=== PATIENT | female | born 1995 | race Two or more races ===

== ENCOUNTER → 2018-05-20 16:30 | Outpatient (CLI) | payer BC, SELFPAY ==
[2018-05-14 12:09] VITALS: BMI 21.6
[2018-05-20 17:47] LABS: Glucose Challenge Gest 1H 50g 68 mg/dL (70-140)
--- OUTSIDE RECORDS SUMMARY | 2018-07-16 09:11 | XMS RPT_ITS ---
:1995 Author Organization OHIP Care Team Providers Name Role Phone Mabel Villafana Attending Unavailable Gulshankarus, Miryamour Referring Unavailable Primay Care Physicia, No Primary Care Unavailable Ledy, Miryamour Attending Unavailable Rahel Dasily Primary Care Unavailable Isckarus, Mansour Consulting Unavailable Pieters, Isis Referring Unavailable Isckarus, Miryamour Attending Unavailable Primay Care Physicia, No Primary Care Unavailable Isckarus, Mansour Consulting Unavailable Pieters, Isis Referring Unavailable Pieters, Isis Attending Unavailable Primay Care Physicia, No Primary Care Unavailable PROBLEMS PROBLEMS DATE TYPE CONDITION / CODE ATTENDING STATUS SOURCE 05/20/2018 Unknown Z34.82 - Isis Das Active [place] Encounter for Community supervision of Hospital other normal Repository , second trimester / Z34.82(ICD-10) 05/19/2018 Unknown D50.9 - Iron Isckarus, Active Antonio deficiency Mansisaac [facility] anemia, [facility] unspecified / Repository D50.9(ICD-10) PROCEDURES PROCEDURES No Procedure Records FoundRESULTS RESULTS GLUCOSE CHALLENGE GEST Collected: 05/20/2018 Status: F Source: ANTONIO 1H 50G 4:50 PM [facility] REPOSITORY TYPE CODE TESTS RESULT OUT OF RANGE REFERENCE UNITS LAB L501.0250 70-140 mg/dL Low GLU GEST 68 50g 1H Performed By: #### L501.0250 #### [facility] [address] [place], [address] ONCOLOGY VISIT REPORT Observed: 05/14/2018 Status: F Source: MAGNOLIA 12:42 PM [facility] REPOSITORY [facility] [address] [place] [address] OFFICE VISIT Date of Service: 05/14/18 1238 MR#: [id number] Acct: [id number] Name: SHAQ MEDRANO Rep #: [id number] : 1995 From: Mabel Villafana MD Age/Sex: 22/F Location: OMD Status: Signed - Problem List (1) Iron deficiency anemia Status: Chronic (2) Microcytic anemia Status: Resolved Comment: With iron supplementation - Date of Service Date of Service:: 05/14/18 - Chief Complaint Anemia - History of Present Illness Patient is a 22-year-old female of [place] heritage, in midtrimester referred because of microcytic anemia. She reports being anemic with a hemoglobin around 9 g per DL even prior to her . In the first trimester of her she was seen by ([facility]) was diagnosed with iron deficiency and advised to start taking oral iron which she has been taking since currently 3 tablets daily with the main side effect reported being constipation. Additionally she is taking her vitamin which she believes include some iron too. She is unaware of any external blood loss, and although she reports that prior to becoming her periods were not particularly heavy she reports menses that last on average 5 days, changing tampons on average twice daily, the blood flow included blood clots. - Past Medical/Social History Social History Social History: No changes Smoking Status Never smoker Review of Systems Comment: I feel better. For a full review of systems please see my recent consult of May 07, 2018 Vital Signs Height 5 ft 6 in Weight: 60.691 kg Weight in Pounds 133.8 lbs Pulse Ox 100 - Physical Exam General: Alert, Oriented x3, No apparent distress, - - For a full exam please see my recent note of May 07, 2018 Laboratory Data: Reviewed in EMR Assessment and Plan 22-year-old female in mid trimester non-complicated who presented with a chronic microcytic. With iron supplementation microcytosis resolved and therefore her anemia is most consistent with: #1 iron deficiency anemia probably related to prior menstrual losses. #2 anemia (due to hemodilution). Thalassemia trait is very unlikely. Recommendation: Continue oral iron supplement 1 tablet daily (has been increasingly constipated on 3 times daily) and will reevaluate in 2 months. Patient was seen was her impression and plan discussed Medications: Prescriptions This Visit Medication Instructions Recorded Ferous Sulfate 1 tab PO TID 05/07/18 Pnv95/Ferrous Fumarate/FA 2 each PO DAILY 05/07/18 [ Vitamin Tablet] Primary Care Provider: Isis Dsa Referring Provider: 05/14/18 1242 <Electronically signed by Mabel Villafana MD> Date Mabel Villafana MD Cosigner Signature: Date (if applicable) CC: CBC W/DIFF, AUTOMATED Collected: 05/07/2018 Status: F Source: ANTONIO 4:39 PM [facility] REPOSITORY Order Comment: Reason for Laboratory Test . TYPE CODE TESTS RESULT OUT OF RANGE REFERENCE UNITS LAB L100.1000 4.4-11.0 K/mm3 Normal WBC 9.5 LAB L100.1200 4.2-5.4 M/mm3 Normal RBC 4.56 LAB L100.1300 12.0-15.0 g/dl Normal HGB 12.5 LAB L100.1400 37-47 % Normal HCT 38.3 LAB L100.1500 81-99 fL Normal MCV 84.0 LAB L100.1600 27.0-32.0 pg Normal MCH 27.4 LAB L100.1700 32-36 g/gl Normal MCHC 32.6 LAB L100.1810 11.6-14.6 % High RDW CV 19.6 LAB L100.1820 35.1-43.9 fl High RDW SD 58.7 LAB L100.1900 150-450 K/mm3 Normal PLT 270 LAB L100.2000 6.2-12.0 fl Normal MPV 8.4 LAB L100.2100 47-70 % Normal NEUT% 68.2 LAB L100.2200 19-41 % Normal LY% 21.5 LAB L100.2300 0-10 % Normal MONO% 7.2 LAB L100.2400 0-5 % Normal EO% 2.4 LAB L100.2500 0-1 % Normal BASO% 0.2 LAB L100.2550 0.0-0.9 % Normal IM GRAN % 0.500 Result Comment: IG% - Immature Granulocytes (promyelocytes, myelocytes and metamyelocytes) > 1% indicates that a LEFT SHIFT is Present. LAB L100.2620 2.0-7.7 X10 3/uL Normal Absolute Neut 6.5 LAB L100.2720 0.83-4.51 X10 3/ul Normal Absolute Lymph 2.04 Performed By: #### L100.0100, L100.9950 #### [facility] [address] [facility] [address] RETIC PANEL Collected: 05/07/2018 Status: F Source: MAGNOLIA 4:39 PM [facility] REPOSITORY Order Comment: Reason for Laboratory Test . TYPE CODE TESTS RESULT OUT OF RANGE REFERENCE UNITS LAB L101.0000 0.5-1.5 % 1.18 Normal RETIC LAB L101.0060 3.00-15.90 % IM 10.00 Normal RET FRACTION LAB L101.0090 30-35 pg 35.0 Normal RET-HE LAB L101.0110 1.0-7.9 % Test Normal IPF not performed Performed By: #### L100.0100, L100.9950 #### [facility] [address] [facility] [place], [place], [address] IRON+IRON BINDING Collected: 05/07/2018 Status: F Source: [facility] 4:39 PM [facility] REPOSITORY Order Comment: Reason for Laboratory Test . TYPE CODE TESTS RESULT OUT OF RANGE REFERENCE UNITS LAB L503.6075 250-450 ug/dL TIBC Normal 411 LAB L503.6150 50-170 ug/dL IRON Normal 72 LAB L503.6250 15.0-55.0 % IRON Normal SATURATION 17.5 Performed By: #### L503.6030, L503.6550 #### [facility] [address] [place], [address] FERRITIN Collected: 05/07/2018 Status: F Source: MAGNOLIA 4:39 PM [facility] REPOSITORY Order Comment: Reason for Laboratory Test . TYPE CODE TESTS RESULT OUT OF RANGE REFERENCE UNITS LAB L503.6550 8-252 ng/mL Normal FERRITIN 19 Performed By: #### L503.6030, L503.6550 #### [facility] [address] [facility] [place], [address] ONCOLOGY HISTORY AND Observed: 05/07/2018 Status: F Source: MAGNOLIA PHYSICAL 4:26 PM [facility] REPOSITORY [facility] Medical Records Department [address] [place] [address] History and Physical 05/07/18 1554 MR#: [id number] Acct: [id number] Name: SHAQ MEDRANO Rep #: [id number] : 1995 22 From: Mabel Villafana MD PCP: Isis Das MD Status: REG RCR Y Location: OMD - Problem List (1) Iron deficiency anemia Status: Chronic (2) Microcytic anemia Status: Chronic Subjective Date of Service:: 05/07/18 Chief Complaint: Anemia History of Present Illness: Patient is a 22-year-old female of [place] heritage, in midtrimester referred because of microcytic anemia. She reports being anemic with a hemoglobin around 9 g per DL even prior to her . In the first trimester of her she was seen by ([facility]) was diagnosed with iron deficiency and advised to start taking oral iron which she has been taking since currently 3 tablets daily with the main side effect reported being constipation. Additionally she is taking her vitamin which she believes include some iron too. She is unaware of any external blood loss, and although she reports that prior to becoming her periods were not particularly heavy she reports menses that last on average 5 days, changing tampons on average twice daily, the blood flow included blood clots. Health History: Past Medical History (Last Reviewed 05/07/18 @ 15:48 by Adriane Vela) Anemia (Acute) (Acute) Past Surgical History (Last Reviewed 05/07/18 @ 15:48 by Adriane Vela) No history of previous surgery (Acute) Allergies/Adverse Reactions: Allergy/AdvReac Type Severity Reaction Status Date / Time No Known Allergies Allergy Verified 05/07/18 15:48 Risk Factors Tobacco Risk Data: Tobacco Risk Smoking Status Type of tobacco: Smokeless tobacco usage: Items/Day: Year started: Years used: Counseled to quit/cut down: Reason for no counseling performed: Reason for no pharmacotherapy: Tobacco use comments: Passive smoke exposure: Substance Risk Drug use: Caffeine use [drinks/day]: Alcohol use: Type of alcohol: Drinks per day: Has patient felt the need to cut down: Has the patient been annoyed by complaints: Has the patient felt guilty about drinking: Has the patient needed an eye environmental services tech in the mornings: Comments: Review of Systems Constitutional:: Reports: - - She is able to do ADL without any restrictions. Denies: Fever, Sweats, Weight loss, Appetite change, Chills Cardiovascular:: Denies: Chest pain, Palpitations, Dyspnea on exertion, Orthopnea, PND, Shortness of breath Respiratory: Denies: Cough, Hemoptysis, Shortness of Breath, Wheezing Gastrointestinal:: Reports: Constipation. Denies: Abdominal pain, Nausea, Vomiting, Diarrhea, Hematochezia Genitourinary: Reports: - - 25 weeks. Denies: Dysuria, Hematuria, Flank pain Musculoskeletal:: Denies: Back pain, Myalgia, Arthralgia Skin: Denies: Rash, Skin Changes, Wounds Neurological:: Denies: Headache, Dizziness, Visual changes, Tinnitus, Hearing loss Psychiatric: Denies: Anxiety, Depression, Homicidal Ideations, Suicidal Ideations - Physical Exam General: Alert, Oriented x3, No apparent distress, - HEENT: Atraumatic, PERRLA, EOMI, Normocephalic Oropharynx:: Dry mucosa, - - Mild pallor Neck:: Supple, Trachea midline. Negative for: JVD, bilateral Cardiac:: Regular rate, Regular rhythm, Normal S1, Normal S2. Negative for: Murmur Lungs: Clear to auscultation, Excusion symmetrical. Negative for: Rhonchi, Wheezes Abdomen:: Soft, Non-tender. Negative for: Hepatosplenomegaly Extremities:: Negative for: Cyanosis, Edema Neurological: Neuro grossly intact Skin:: Negative for: Lesions, Rash, Petechiae, Ecchymosis Psychiatric:: Appropriate affect, Euthymic Lymphatics:: Negative for: Cervical lymphadenopathy, Supraclavicular lymphadenopathy Laboratory Data: February 12, 2018 outside lab show a hemoglobin of 9 g per DL, hematocrit 28.7, MCV 63, RDW 23.8%, white blood count and platelet counts are normal, ferritin 10, normal level for B12. Assessment and Plan 22-year-old female in mid trimester non-complicated with a chronic microcytic anemia most likely multifactorial including: #1 iron deficiency anemia probably related to prior menstrual losses. #2 Thalassemia trait. #3 anemia (due to hemodilution) Recommendation: 1. Update iron and CBC profile. 2. Continue oral iron supplement until seen in follow-up in 1 week. 3. Hemoglobin electrophoresis after correction of iron deficiency. Patient was seen was her impression and plan discussed Medications: Prescriptions This Visit Medication Instructions Recorded Ferous Sulfate 1 tab PO TID 05/07/18 Pnv95/Ferrous Fumarate/FA 2 each PO DAILY 05/07/18 [ Vitamin Tablet] Primary Care Provider: Isis Das Referring Provider: 05/07/18 2533 <Electronically signed by Mabel Villafana MD> Date Mabel Villafana MD Cosigner Signature: Date (if applicable) CC: Isis Das MD; Mabel Villafana MD Signed ALLERGIES ALLERGIES DATE TYPE / CODE NAME / CODE REACTION SEVERITY SOURCE 05/07/2018 Drug No Known Unknown [facility] Allergy/4160 Allergies/F00 [facility] [address](SNOMED [id number](RXNOR Repository CT) M) ENCOUNTERS ENCOUNTERS ADMIT/DISCHARGE ACCOUNT ADMITTING ENCOUNTER LOCATION SOURCE NUMBER CLASS 05/20/2018 [id number] Ambulatory [place] 3 [facility] ing:WOBLAB Repository 05/14/2018 [id number] Ambulatory BMSBuilding:B [place] 6 [facility] Repository 05/14/2018 [id number] Ambulatory [place] 7 [facility] ing:OMD Repository 05/07/2018 [id number] Ambulatory BMSBuilding:B [place] 2 [facility] Repository PAYERS PAYERS ENCOUNTER GUARANTOR PAYER SUBSCRIBER SOURCE 05/20/2018 [facility] Primary SUBRAMIAN [place] [id number] Insurance:ANTHEMPolic ANNAMALAIUNK [facility] RDUNIT y Number: [id number] Repository [address]Cpn: [phone] lisa Date:[id number] [phone] () [address] [place] [address]YF: 05/20/2018 Secondary NOT GIVENUNK [place] Insurance:SELF PAY [facility] Number: Effective Repository Date:2018-05-20 05/14/2018 [facility] Primary SUBRAMIAN [place] [id number] Insurance:ANTHEMPolic ANNAMALAIUNK [facility] RDUNIT y Number: [address] [id number] Repository [address]Dgf: [phone] lisa Date:[id number] [phone] () [id number] [place] [address]BU: 05/14/2018 Secondary NOT GIVENUNK Antonio Insurance:SELF PAY [facility] Number: Effective Repository Date:2018-05-14 05/14/2018 [facility] Primary SUBRAMIAN Antonio [id number] Insurance:ANTHEMPolic ANNAMALAIUNK [facility] RDUNIT y Number: [address] [id number] Repository [address]Fpt: [phone] lisa Date:[id number] [phone] () [address], [place] [address]YS: 05/14/2018 Secondary NOT GIVENUNK [place] Insurance:SELF PAY [facility]: Effective Repository Date:2018-05-05 05/07/2018 [facility] Primary SUBRAMIAN [place] [id number] [facility] Number: [address] [id number] Repository [address]Lax: [phone] lisa Date:1714-72-26RM [phone] () [address], [place] [address]RM: 05/07/2018 Secondary NOT GIVENUNK [place] Insurance:SELF PAY [facility] Number: Effective Repository Date:2018-05-07
== END ==
PROVIDERS: Visit Provider Obstetrics & Gynecology
DX: Z34.82 Encounter for supervision of other normal pregnancy, second trimester (principal)
CPT/HCPCS: 36415; 82950

== ENCOUNTER → 2018-07-12 11:12 | Outpatient (CLI) | payer BC, SELFPAY ==
[2018-05-14 12:09] VITALS: BMI 21.6
[2018-07-12 11:28] LABS: Absolute Lymphocyte Count 1.51 X10^3/ul (0.83-4.51); Absolute Neutrophil Count 7.8 X10^3/uL (2.0-7.7); Basophil# 0.02 X10^3/uL; Basophil% 0.2 % (0-1); Eosinophil# 0.32 X10^3/uL; Eosinophils% 3.1 % (0-5); Hematocrit 37.6 % (37-47); Hemoglobin 12.4 g/dl (12.0-15.0); Lymphocyte # 1.51 X10^3/ul (4.0); Lymphocyte % 14.5 % (19-41); Mean Corpuscular Hgb 29.3 pg (27.0-32.0); Mean Corpuscular Volume 88.9 fL (81-99); Mean Platelet Vol. 8.3 fl (6.2-12.0); Monocyte# 0.76 X10^3/uL; Monocyte% 7.3 % (0-10); Neutrophil # 7.75 X10^3/uL (2.7-7.7); Neutrophil % 74.2 % (47-70); Platelet Count 252 K/mm3 (150-450); RBC Distribution Width CV 14.1 % (11.6-14.6); RBC Distribution Width SD 44.9 fl (35.1-43.9); Red Blood Count 4.23 M/mm3 (4.2-5.4); White Blood Count 10.4 K/mm3 (4.4-11.0)
[2018-07-12 11:29] LABS: POSITIVE COUNT NO; POSITIVE DIFFERENTIAL NO; POSITIVE MORPHOLOGY NO
[2018-07-12 12:16] LABS: Ferritin 31 ng/mL (8-252); Iron 87 ug/dL (50-170); Iron Binding Capacity,Total 426 ug/dL (250-450); PERCENT IRON SATURATION 20.4 % (15.0-55.0)
--- OUTSIDE RECORDS SUMMARY | 2018-09-15 10:07 | XMS RPT_ITS ---
:1995 Author Organization OHIP Care Team Providers Name Role Phone STEW DAMON CNP Attending Unavailable HUDSON FOWLER, DR. ANTONY Pena Attending Unavailable STEW DAMON CNP Referring Unavailable PHYSICIAN, NONE Primary Care Unavailable HUDSON FOWLER, DR. ANTONY Pena Attending Unavailable PHYSICIAN, NONE Primary Care Unavailable Isckarus, Mansour Attending Unavailable Isckarus, Mansour Referring Unavailable Primay Care Physicia, No Primary Care Unavailable Isckarus, Mansour Attending Unavailable Primay Care Physicia, No Primary Care Unavailable Isckarus, Mansour Consulting Unavailable Benekos, Isis Referring Unavailable Isckarus, Mansour Attending Unavailable Isckarus, Mansour Referring Unavailable Primay Care Physicia, No Primary Care Unavailable Isckarus, Mansour Attending Unavailable Benekos, Isis Primary Care Unavailable Isckarus, Mansour Consulting Unavailable Benekos, Isis Referring Unavailable Isckarus, Mansour Attending Unavailable Primay Care Physicia, No Primary Care Unavailable Isckarus, Mansour Consulting Unavailable Benekos, Isis Referring Unavailable Benekos, Isis Attending Unavailable Primay Care Physicia, No Primary Care Unavailable PROBLEMS PROBLEMS DATE TYPE CONDITION / CODE ATTENDING STATUS SOURCE 07/11/2018 Unknown D50.9 - Iron Isckarus, Active [place] deficiency [facility] anemia, [facility] unspecified / Repository D50.9(ICD-10) 05/20/2018 Unknown Z34.82 - Rahel Dasily Active [place] Encounter for [facility] other normal Repository , second trimester / Z34.82(ICD-10) 01/23/2018 Admitting Encounter for STEW DAMON CNP Active [facility] screening, Repository unspecified / Z36.9(ICD-10) PROCEDURES PROCEDURES No Procedure Records FoundRESULTS RESULTS ONCOLOGY VISIT REPORT Observed: 07/15/2018 Status: F Source: [place] 3:47 PM [facility] HOSPITAL REPOSITORY [facility] [place] [facility] [address] [place] [address] OFFICE VISIT Date of Service: 07/15/18 1531 MR#: [id number] Acct: [id number] Name: MARCELASHAQ Rep #: [id number] : 1995 From: Mabel Villafana MD Age/Sex: 22/F Location: OMD Status: Signed - Problem List (1) Iron deficiency anemia Status: Chronic - Date of Service Date of Service:: 07/15/18 - Chief Complaint Anemia - History of Present Illness Patient is a 22-year-old female of [place] heritage, referred During her first because of microcytic anemia. She reports being anemic with a hemoglobin around 9 g per DL even prior to her . In the first trimester of her she was seen by ([facility]) was diagnosed with iron deficiency and advised to start taking oral iron She is unaware of any external blood loss, and although she reports that prior to becoming her periods were not particularly heavy she reports menses that last on average 5 days, changing tampons on average twice daily, the blood flow included blood clots. - Past Medical/Social History Social History Social History: No changes Smoking Status Never smoker Review of Systems Constitutional:: Denies: Fever, Sweats, Weight loss, Appetite change, Chills Cardiovascular:: Denies: Chest pain, Palpitations, Dyspnea on exertion, Orthopnea, PND, Shortness of breath Respiratory: Denies: Cough, Hemoptysis, Shortness of Breath, Wheezing Comment: No complications during as and expecting in July 2018 Vital Signs Height 5 ft 6 in Weight: 60.691 kg Weight in Pounds 133.8 lbs Pulse Ox 100 - Physical Exam General: Alert, Oriented x3, No apparent distress, - - No pallor Assessment and Plan 22-year-old female in Third trimester non-complicated who presented In early with a chronic microcytic. With iron supplementation microcytosis resolved and therefore her anemia is most consistent with: #1 iron deficiency anemia probably related to prior menstrual losses. Resolved with oral iron supplement. #2 anemia (due to hemodilution). Recommendation: Continue oral iron supplement 1 tablet daily Advised until menopause . Patient was seen was her impression and plan discussed. Followup annual Medications: Prescriptions This Visit Medication Instructions Recorded Ferous Sulfate 1 tab PO TID 05/07/18 Pnv No.95/Ferrous Fum/Folic AC 2 each PO DAILY 05/07/18 [ Vitamin Tablet] Primary Care Provider: Isis Das Referring Provider: 07/15/18 2665 <Electronically signed by Mabel Villafana MD> Date Mabel Villafana MD Cosigner Signature: Date (if applicable) CC: Isis Das MD CBC W/DIFF, AUTOMATED Collected: 07/12/2018 Status: F Source: [place] 11:16 AM [facility] REPOSITORY Order Comment: Reason for Laboratory Test . TYPE CODE TESTS RESULT OUT OF RANGE REFERENCE UNITS LAB L100.1000 4.4-11.0 K/mm3 Normal WBC 10.4 LAB L100.1200 4.2-5.4 M/mm3 Normal RBC 4.23 LAB L100.1300 12.0-15.0 g/dl Normal HGB 12.4 LAB L100.1400 37-47 % Normal HCT 37.6 LAB L100.1500 81-99 fL Normal MCV 88.9 LAB L100.1600 27.0-32.0 pg Normal MCH 29.3 LAB L100.1700 32-36 g/gl Normal MCHC 33.0 LAB L100.1810 11.6-14.6 % Normal RDW CV 14.1 LAB L100.1820 35.1-43.9 fl High RDW SD 44.9 LAB L100.1900 150-450 K/mm3 Normal PLT 252 LAB L100.2000 6.2-12.0 fl Normal MPV 8.3 LAB L100.2100 47-70 % High NEUT% 74.2 LAB L100.2200 19-41 % Low LY% 14.5 LAB L100.2300 0-10 % Normal MONO% 7.3 LAB L100.2400 0-5 % Normal EO% 3.1 LAB L100.2500 0-1 % Normal BASO% 0.2 LAB L100.2550 0.0-0.9 % Normal IM GRAN % 0.700 Result Comment: IG% - Immature Granulocytes (promyelocytes, myelocytes and metamyelocytes) > 1% indicates that a LEFT SHIFT is Present. LAB L100.2620 2.0-7.7 X10 3/uL High Absolute Neut 7.8 LAB L100.2720 0.83-4.51 X10 3/ul Normal Absolute Lymph 1.51 Performed By: #### L100.0100 #### [facility] [address] [place], [address] IRON+IRON BINDING Collected: 07/12/2018 Status: F Source: [place] CAPACITY 11:16 AM [facility] REPOSITORY Order Comment: Reason for Laboratory Test . TYPE CODE TESTS RESULT OUT OF RANGE REFERENCE UNITS LAB L503.6075 250-450 ug/dL TIBC Normal 426 LAB L503.6150 50-170 ug/dL IRON Normal 87 LAB L503.6250 15.0-55.0 % IRON Normal SATURATION 20.4 Performed By: #### L503.6030, L503.6550 #### [facility] [address] [place], [address] FERRITIN Collected: 07/12/2018 Status: F Source: [place] 11:16 AM [facility] REPOSITORY Order Comment: Reason for Laboratory Test . TYPE CODE TESTS RESULT OUT OF RANGE REFERENCE UNITS LAB L503.6550 8-252 ng/mL Normal FERRITIN 31 Performed By: #### L503.6030, L503.6550 #### [facility] [address] [place], [address] GLUCOSE CHALLENGE GEST Collected: 05/20/2018 Status: F Source: [place] 1H 50G 4:50 PM [facility] REPOSITORY TYPE CODE TESTS RESULT OUT OF RANGE REFERENCE UNITS LAB L501.0250 70-140 mg/dL Low GLU GEST 68 50g 1H Performed By: #### L501.0250 #### [facility] [address] [place], [address] ONCOLOGY VISIT REPORT Observed: 05/14/2018 Status: F Source: [place] 12:42 PM [facility] REPOSITORY [place] [facility] [address] [place] [address] OFFICE VISIT Date of Service: 05/14/18 1238 MR#: [id number] Acct: [id number] Name: SHAQ MEDRANO Rep #: [id number] : 1995 From: Mabel Villafana MD Age/Sex: 22/F Location: OMD Status: Signed - Problem List (1) Iron deficiency anemia Status: Chronic (2) Microcytic anemia Status: Resolved Comment: With iron supplementation - Date of Service Date of Service:: 05/14/18 - Chief Complaint Anemia - History of Present Illness Patient is a 22-year-old female of [place] heritage, in midtrimester referred because of microcytic anemia. She reports being anemic with a hemoglobin around 9 g per DL even prior to her . In the first trimester of her she was seen by ([facility]) was diagnosed with iron deficiency and advised [...] Primary Care Provider: Isis Das Referring Provider: 05/14/18 6641 <Electronically signed by Mansour Isckarus MD> Date Mabel Loyaigner Signature: Date (if applicable) CC: CBC W/DIFF, AUTOMATED Collected: 05/07/2018 Status: F Source: [place] 4:39 PM [facility] REPOSITORY Order Comment: Reason for Laboratory Test [...] 2.04 Performed By: #### L100.0100, L100.9950 #### [facility] [address] [place], [place], [address] RETIC PANEL Collected: 05/07/2018 Status: F Source: [place] 4:39 PM [facility] REPOSITORY Order Comment: Reason for Laboratory Test . TYPE CODE TESTS RESULT OUT OF RANGE REFERENCE UNITS LAB L101.0000 0.5-1.5 % 1.18 Normal RETIC LAB L101.0060 3.00-15.90 % IM 10.00 Normal RET FRACTION LAB L101.0090 30-35 pg 35.0 Normal RET-HE LAB L101.0110 1.0-7.9 % Test Normal IPF not performed Performed By: #### L100.0100, L100.9950 #### [facility] [address] [place], [place], [address] IRON+IRON BINDING Collected: 05/07/2018 Status: F Source: [facility] 4:39 PM [facility] REPOSITORY Order Comment: Reason for Laboratory Test . TYPE CODE TESTS RESULT OUT OF RANGE REFERENCE UNITS LAB L503.6075 250-450 ug/dL TIBC Normal 411 LAB L503.6150 50-170 ug/dL IRON Normal 72 LAB L503.6250 15.0-55.0 % IRON Normal SATURATION 17.5 Performed By: #### L503.6030, L503.6550 #### [facility] [address] [place], [place], [address] FERRITIN Collected: 05/07/2018 Status: F Source: [place] 4:39 PM [facility] REPOSITORY Order Comment: Reason for Laboratory Test . TYPE CODE TESTS RESULT OUT OF RANGE REFERENCE UNITS LAB L503.6550 8-252 ng/mL Normal FERRITIN 19 Performed By: #### L503.6030, L503.6550 #### [facility] [address] [place], [place], [address] ONCOLOGY HISTORY AND Observed: 05/07/2018 Status: F Source: [place] PHYSICAL 4:26 PM [facility] REPOSITORY [facility] Medical Records Department [address] [place] [address] History and Physical 05/07/18 1554 MR#: [id number] Acct: [id number] Name: SHAQ MEDRANO Rep #: [id number] : 1995 22 From: Mabel Villafana MD PCP: Isis Das MD Status: REG RCR Y Location: OMD - Problem List (1) Iron deficiency anemia Status: Chronic (2) Microcytic anemia Status: Chronic Subjective Date of Service:: 05/07/18 Chief Complaint: Anemia History of Present Illness: Patient is a 22-year-old female of [place] heritage, in midtrimester referred because of microcytic anemia. She reports being anemic with a hemoglobin around 9 g per DL even prior to her . 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: Comments: Review of Systems [...] Care Provider: Isis Das Referring Provider: 05/07/18 1977 <Electronically signed by Mabel Villafana MD> Date Mabel Villafana MD Cosigner Signature: Date (if applicable) CC: Isis Das MD; Mabel Villafana MD Signed RETIC Collected: 02/12/2018 Status: F Source: [facility] 10:23 AM [facility] REPOSITORY TYPE CODE TESTS RESULT OUT OF REFERENCE UNITS RANGE LAB BRYNN(LOINC) 0.2-2.3 % Reticulocytes, 2.0 Auto LAB ARET(LOINC) 8.0-108.0 10 3/mcL Reticulocytes, 93.2 Absolute LAB IRF(LOINC) 0.20-0.46 IRF High Immature Retic 0.55 Fraction Performed By: #### RETIC, FE, IBC, B12, HOMO, CBC, FERR, FOL, MORPH, ADIFF, ANEU, HAPTO, MMA #### [facility] [address] [place] [address] FE Collected: 02/12/2018 Status: F Source: [facility] 10:23 AM [facility] REPOSITORY TYPE CODE TESTS RESULT OUT OF RANGE REFERENCE UNITS LAB FE(LOINC) 37-170 mcg/dL Low Iron 24 Performed By: #### RETIC, FE, IBC, B12, HOMO, CBC, FERR, FOL, MORPH, ADIFF, ANEU, HAPTO, MMA #### [place] [address] IBC Collected: 02/12/2018 Status: F Source: [facility] 10:23 AM [facility] REPOSITORY TYPE CODE TESTS RESULT OUT OF RANGE REFERENCE UNITS LAB IBC(LOINC) 250-500 mcg/dL TIBC 470 Performed By: #### RETIC, FE, IBC, B12, HOMO, CBC, FERR, FOL, MORPH, ADIFF, ANEU, HAPTO, MMA #### [place] [address] B12 Collected: 02/12/2018 Status: F Source: [facility] 10:23 AM [facility] REPOSITORY TYPE CODE TESTS RESULT OUT OF REFERENCE UNITS RANGE LAB B12(LOINC) 211-911 pg/mL Vitamin B12 533 Lvl Performed By: #### RETIC, FE, IBC, B12, HOMO, CBC, FERR, FOL, MORPH, ADIFF, ANEU, HAPTO, MMA #### [place] [address] HOMO Collected: 02/12/2018 Status: F Source: [facility] 10:23 AM [facility] REPOSITORY TYPE CODE TESTS RESULT OUT OF REFERENCE UNITS RANGE LAB HOMO(LOINC 3.0-11.9 umol/l ) Homocysteine (serum) 4.8 Performed By: #### RETIC, FE, IBC, B12, HOMO, CBC, FERR, FOL, MORPH, ADIFF, ANEU, HAPTO, MMA #### [place] [address] CBC Collected: 02/12/2018 Status: F Source: [facility] 10:23 AM [facility] REPOSITORY TYPE CODE TESTS RESULT OUT OF REFERENCE UNITS RANGE LAB WBC(LOINC) 4.50-10.80 10 3/mcL WBC 7.80 LAB RBCCT(LOINC 4.10-5.30 10 6/mcL ) RBC 4.54 LAB HGB(LOINC) 12.0-16.0 G/dL Low Hgb 9.0 LAB HCT(LOINC) 34.0-46.0 % Low Hct 28.7 LAB MCV(LOINC) 80.0-99.0 fL Low MCV 63.3 LAB MCH(LOINC) 27.0-33.0 pg Low MCH 19.9 LAB MCHC(LOINC) 32.0-36.0 G/dL Low MCHC 31.4 LAB RDW(LOINC) 11.5-15.5 % High RDW 23.8 LAB PLT(LOINC) 150-450 10 3/mcL Platelet 329 LAB MPV(LOINC) 6.6-10.5 fL MPV 7.2 Performed By: #### RETIC, FE, IBC, B12, HOMO, CBC, FERR, FOL, MORPH, ADIFF, ANEU, HAPTO, MMA #### [place] [address] FERR Collected: 02/12/2018 Status: F Source: [facility] 10:23 AM [facility] REPOSITORY TYPE CODE TESTS RESULT OUT OF REFERENCE UNITS RANGE LAB FERR(LOINC) 8-252 ng/mL Ferritin 10 Performed By: #### RETIC, FE, IBC, B12, HOMO, CBC, FERR, FOL, MORPH, ADIFF, ANEU, HAPTO, MMA #### [place] [address] FOL Collected: 02/12/2018 Status: F Source: [facility] 10:23 AM [facility] REPOSITORY TYPE CODE TESTS RESULT OUT OF REFERENCE UNITS RANGE LAB FOL(LOINC) 1.1-20.0 ng/mL High Folate 43.6 Performed By: #### RETIC, FE, IBC, B12, HOMO, CBC, FERR, FOL, MORPH, ADIFF, ANEU, HAPTO, MMA #### [place] [address] .MORPH Collected: 02/12/2018 Status: F Source: [facility] 10:23 AM [facility] REPOSITORY TYPE CODE TESTS RESULT OUT OF REFERENCE UNITS RANGE LAB PLTE(LOINC ) Platelet Estimate Normal LAB ANIS(LOINC ) Anisocytosis Moderate LAB POIK(LOINC ) Poik Moderate LAB HYPC(LOINC ) Hypochrom Slight LAB POLC(LOINC ) Polychrom Slight LAB MICYT(LOIN C) Microcytosis Marked LAB TEAR(LOINC ) Tear Cell Rare LAB OVAL(LOINC ) Ovalocytes Few Performed By: #### RETIC, FE, IBC, B12, HOMO, CBC, FERR, FOL, MORPH, ADIFF, ANEU, HAPTO, MMA #### [place] [address] .AUTO DIFF Collected: 02/12/2018 Status: F Source: [facility] 10:23 AM [facility] REPOSITORY TYPE CODE TESTS RESULT OUT OF REFERENCE UNITS RANGE LAB VASYL(LOINC) 50.0-75.0 % Neutrophil % 73.3 LAB LYM(LOINC) 20.0-40.0 % Low Lymphocyte % 18.8 LAB MON(LOINC) 2.0-13.0 % Monocyte % 6.7 LAB EO(LOINC) 0.0-6.0 % Eosinophil % 0.9 LAB BAS(LOINC) 0.0-2.5 % Basophil % 0.3 LAB ABLYM(LOIN 0.90-4.32 10 3/mcL C) Lymphocyte, 1.50 Absolute LAB FLAKITA(LOINC 0.09-1.40 10 3/mcL ) Monocyte, 0.50 Absolute LAB AEOS(LOINC 0.00-0.65 10 3/mcL ) Eosinophil, 0.10 Absolute LAB ABAS(LOINC 0.00-0.27 10 3/mcL ) Basophil, 0.00 Absolute Performed By: #### RETIC, FE, IBC, B12, HOMO, CBC, FERR, FOL, MORPH, ADIFF, ANEU, HAPTO, MMA #### [place] [address] .NEUABS Collected: 02/12/2018 Status: F Source: [facility] 10:23 AM [facility] REPOSITORY TYPE CODE TESTS RESULT OUT OF REFERENCE UNITS RANGE LAB ANEU(LOINC) 2.25-8.10 10 3/mcL Neutrophil, 5.70 Absolute Performed By: #### RETIC, FE, IBC, B12, HOMO, CBC, FERR, FOL, MORPH, ADIFF, ANEU, HAPTO, MMA #### [place] [address] HAPTO Collected: 02/12/2018 Status: F Source: [facility] 10:23 AM [facility] REPOSITORY TYPE CODE TESTS RESULT OUT OF REFERENCE UNITS RANGE LAB HAPTO(LOIN 36-195 mg/dL C) Haptoglobin 141 Performed By: #### RETIC, FE, IBC, B12, HOMO, CBC, FERR, FOL, MORPH, ADIFF, ANEU, HAPTO, MMA #### [place] [address] MET Collected: 02/12/2018 Status: F Source: [facility] 10:23 AM [facility] REPOSITORY TYPE CODE TESTS RESULT OUT OF REFERENCE UNITS RANGE LAB MET(LOINC) 79-376 nmol/L Methylmalonic Acid 108 Result Comment: This test was developed and its performance characteristics determined by [facility]'s Gaudencio P[facility] [place] ([facility]). It has not been cleared or approved by the FDA. -[facility] is regulated under CLIA as qualified to perform high-complexity testing. This test is used for clinical purposes. It should not be regarded as investigational or for research. Performed By: [facility] [employer] [address] [place] [address] Supervisor [place]: Kori Corona M.D. CLIA#: [id number] Phone#: Performed By: #### RETIC, FE, IBC, B12, HOMO, CBC, FERR, FOL, MORPH, ADIFF, ANEU, HAPTO, MMA #### [facility] [address] [place] [address] HGMP Collected: 01/23/2018 Status: F Source: [facility] 3:27 PM [facility] REPOSITORY TYPE CODE TESTS RESULT OUT OF REFERENCE UNITS RANGE LAB WBC(LOINC) 4.50-10.80 10 3/mcL WBC 9.30 LAB RBCCT(LOINC 4.10-5.30 10 6/mcL ) RBC 4.58 LAB HGB(LOINC) 12.0-16.0 G/dL Low Hgb 8.6 LAB HCT(LOINC) 34.0-46.0 % Low Hct 28.7 LAB MCV(LOINC) 80.0-99.0 fL Low MCV 62.6 LAB MCH(LOINC) 27.0-33.0 pg Low MCH 18.8 LAB MCHC(LOINC) 32.0-36.0 G/dL Low MCHC 30.1 LAB RDW(LOINC) 11.5-15.5 % High RDW 20.3 LAB PLT(LOINC) 150-450 10 3/mcL Platelet 345 LAB MPV(LOINC) 6.6-10.5 fL MPV 8.7 Performed By: #### HGMP, PABO, PABS, HBSAG, HIV, RUBIS, RPR #### [place] [address] PABO Collected: 01/23/2018 Status: F Source: [facility] 3:27 PM [facility] REPOSITORY TYPE CODE TESTS RESULT OUT OF RANGE REFERENCE UNITS LAB PARHI(LOINC ) Unknown PABO/Rh B POS Interp Performed By: #### HGMP, PABO, PABS, HBSAG, HIV, RUBIS, RPR #### [place] [address] PABS Collected: 01/23/2018 Status: F Source: [facility] 3:27 PM [facility] REPOSITORY TYPE CODE TESTS RESULT OUT OF REFERENCE UNITS RANGE LAB PABSI(LOINC ) PABS Negative ABSC Interp Performed By: #### HGMP, PABO, PABS, HBSAG, HIV, RUBIS, RPR #### [place] [address] HBSAG Collected: 01/23/2018 Status: F Source: [facility] 3:27 PM [facility] REPOSITORY TYPE CODE TESTS RESULT OUT OF REFERENCE UNITS RANGE LAB HBSAG(LOINC Negative ) Hep B Negative Surf Ag Performed By: #### HGMP, PABO, PABS, HBSAG, HIV, RUBIS, RPR #### [place] [address] HIV Collected: 01/23/2018 Status: F Source: [facility] 3:27 PM [facility] REPOSITORY TYPE CODE TESTS RESULT OUT OF RANGE REFERENCE UNITS LAB HIV(LOINC) Negative HIV 1/2 Ab Result Comment: Negative Specimen is negative for anti-HIV-1 and anti-HIV-2. Performed By: #### HGMP, PABO, PABS, HBSAG, HIV, RUBIS, RPR #### [place] [address] RUBIS Collected: 01/23/2018 Status: F Source: [facility] 3:27 PM [facility] REPOSITORY TYPE CODE TESTS RESULT OUT OF REFERENCE UNITS RANGE LAB RUBIS(LOIN Positive C) Rubella Imm Positive St Result Comment: This immune status assay detects IgM and/or IgG antibody to Rubella. Interpret results in conjunction with clinical history. POS: Antibody detected; exposure at undetermined recent or distant time. If clinically indicated, order Rubella IGM to rule out recent infection. NEG: No antibody detected. Performed By: #### HGMP, PABO, PABS, HBSAG, HIV, RUBIS, RPR #### [facility] [address] [place] [address] RPR Collected: 01/23/2018 Status: F Source: [facility] 3:27 [facility] REPOSITORY TYPE CODE TESTS RESULT OUT OF RANGE REFERENCE UNITS LAB RPR(LOINC) Non-Reactive RPR Non-Reactive Result Comment: The RPR test is a non- treponemal assay useful as an aid in the diagnosis of primary and secondary syphilis. It converts to positive generally within 2 weeks after the appearance of a lesion. This test is also useful for monitoring response to antibiotic therapy. A positive RPR screening test will be followed by the FTA ABS test. False positive RPR tests may occur in 1) patients with underlying autoimmune disorders, 2) elderly patients, 3) , and 4) other conditions with abnormal serum globulins. Performed By: #### HGMP, PABO, PABS, HBSAG, HIV, RUBIS, RPR #### [address] [address] ALLERGIES ALLERGIES DATE TYPE / CODE NAME / CODE REACTION SEVERITY SOURCE 07/15/2018 Drug No Known Unknown [facility] Allergy/4160 Allergies/F00 [facility] [address](SNOMED [id number](RXNOR Repository CT) M) ENCOUNTERS ENCOUNTERS ADMIT/DISCHARGE ACCOUNT NUMBER ADMITTING ENCOUNTER LOCATION SOURCE CLASS 07/15/2018 [id number] Ambulatory BMSBuilding: [place] BMS.CF.[facility] Repository 07/15/2018 [id number] Ambulatory [facility] ding:OMD Repository 07/12/2018 [id number] Ambulatory [facility] ding:LAB Repository 05/20/2018 [id number] Ambulatory [facility] ding:WOBLAB Repository 05/14/2018 [id number] Ambulatory BMSBuilding: [place] BMS.CF.[facility] Repository 05/07/2018 [id number] Ambulatory BMSBuilding: [place] BMS.CF.[facility] Repository 02/12/2018/02/13/20 [id number] Ambulatory [place] [address] ing:LAB [facility] Repository 02/04/2018 [id number] Ambulatory ABuilding:CA [place] [facility] Repository 01/23/2018/01/28/20 [id number] Ambulatory SCWCBuilding [place]ha 18 :[facility] Repository PAYERS PAYERS ENCOUNTER GUARANTOR PAYER SUBSCRIBER SOURCE 07/15/2018 [facility] Primary SUBRAMIAN [place] [id number] Insurance:ANTHEMPolicy ANNAMALARENE [facility], [facility] RDUNIT Number: [address] [id number] Repository [address]Ekv: (234) ve Date:9320-04-43HD [phone] () [address]HUDQBB[address] [address]AX: 07/15/2018 Secondary NOT GIVENUNK [place] Insurance:SELF PAY [facility]: Effective Repository Date:2018-07-15 07/15/2018 [facility] Primary SUBRAMIAN [place] [id number] Insurance:ANTHEMPolicy ANNAMALAIREMEDIOS [facility], [facility] RDUNIT Number: [address] [id number] Repository [address]Brr: (234) ve Date:3590-75-21US [phone] () [address]OZXGCBYCEDRIC DEUTSCH [address]18[address]EQ: 07/15/2018 Secondary NOT GIVENUNK [place] Insurance:SELF PAY Community [facility] Number: Effective Repository Date:2018-05-05 07/12/2018 [facility] Primary SUBRAMIAN [place] [id number] Insurance:ANTHEMPolicy ANNAMAMARTIN [facility], [facility] RDUNIT Number: [address] [id number] Repository [address]Gfe: (234) ve Date:1432-30-50RZ [phone] () [address], [place] [address]QD: 07/12/2018 Secondary NOT GIVENUNK [place] Insurance:SELF PAY Community [facility] Number: Effective Repository Date:2018-07-12 05/20/2018 SHAQ Primary SUBRAMIAN [place] [id number] Insurance:ANTHEMPolicy TASNEEM [facility] RDUNIT Number: [address] [id number] Repository [address]Vyq: (234) ve Date:5533-02-44DQ [phone] () [address] [place] [address] 21042IA: 05/20/2018 Secondary NOT GIVENUNK [place] Insurance:SELF PAY Formerly [facility], [facility] Number: Effective Repository Date:2018-05-20 05/14/2018 [facility] Primary SUBRAMIAN Antonio [id number] Insurance:ANTHEMPolicy TASNEEM Formerly [facility], [facility] RDUNIT Number: [address] [id number] Repository 699[address]Ugn: [phone] ve Date:5719-09-31SH [phone] () [id number] [place] [address] 34819GV: 05/14/2018 Secondary NOT GIVENUNK Antonio Insurance:SELF PAY Formerly [facility], [facility] Number: Effective Repository Date:2018-05-14 [facility]07[facility] [id number] Insurance:ANTHEMPolicy TASNEEM Formerly [facility], [facility] RDUNIT Number: [address] [id number] Repository [address]Hjg: [phone] ve Date:[id number] [phone] () [id number] [place] [address] 94330ZL: 05/07/2018 Secondary NOT GIVENUNK [place] Insurance:SELF PAY Formerly [facility], [facility] Number: Effective Repository Date:2018-05-07 02/12/2018 [facility] ANNAMALAIDOB: Insurance:[place] JULIEN ANNAMALAIDOB: [facility] [id number] CROSS COMMERCIALPolicy [id number] Repository [facility] Number: [facility] [address], [place] [id number] [place], [place] [address]Svb: [phone] ve Date:[id number]: (HP) [id number] [phone] (HP)Tel: Name:BLAKE JARA CEDRIC [place] ([place]) [id number]: 02/04/2018 [facility] ANNAMALAIDOB: Insurance:ANTHEM BLUE ANNMORICHESLAIDOB: [facility] ONIDA [facility] [id number] Repository [facility] Number: [facility] [address] [place] [place] [id number] [place], [place] [address]Ubb: [phone] ve Date:2018-02-05 87619Vgp: (HP) [id number] [phone] (HP)Tel: Name:BLAKE JARA [id number] Deutsch () 832[address]JW: 01/23/2018 [facility] ANNAMALAIDOB: Insurance:ANTHEM BLUE ANNMORICHESLAIDOB: [facility] ONIDA [facility] [id number] Repository [facility] Number: [facility] [address] [place], [place] [id number] [place], [place] [address]Poq: [phone] ve Date:2018-01-2312440Qog: (HP) [id number] [phone] (HP)Tel: Name:BLAKE JARA CEDRIC Forde ([place]) [phone]:
== END ==
PROVIDERS: Referring Provider Internal Medicine Hematology & Oncology; Visit Provider Internal Medicine Hematology & Oncology
DX: D50.9 Iron deficiency anemia, unspecified (principal)
CPT/HCPCS: 36415; 82728; 83540; 83550; 85025

== ENCOUNTER → 2018-07-22 18:43 | Outpatient (CLI) | payer BC, SELFPAY ==
[2018-07-15 15:35] VITALS: BMI 24.0
== END ==
PROVIDERS: Referring Provider Obstetrics & Gynecology; Visit Provider Obstetrics & Gynecology
DX: Z36.85 Encounter for antenatal screening for Streptococcus B (principal)
CPT/HCPCS: 87081

== ENCOUNTER 2018-08-02 18:00 | Inpatient (IN) | payer BC, SELFPAY ==
[2018-05-14 12:09] VITALS: BMI 21.6
[2018-07-15 15:35] VITALS: BMI 24.0
[2018-08-02 17:46] VITALS: BMI 24.0
--- NOTE | 2018-08-02 18:19 | PCM.HP.OB ---
- Problem List (1) 38 weeks gestation of Status: Acute History Date of Admission: 08/02/18 Final COLIN: 08/14/18 Final COLIN Source: US <20 weeks Gestational age: 38 Weeks and 3 Days History of this : This is a 22 year-old, G [1], P [0], at 38 2/7 weeks gestational age presenting with painful contractions. Medical History: Medical History (Last Updated 08/02/18 @ 18:22 by Monika Gibbs MD) Anemia D64.9 Surgical History: Surgical History (Last Reviewed 08/02/18 @ 18:22 by Monika Gibbs MD) No history of previous surgery Allergies No Known Allergies Allergy (Verified 08/02/18 17:47) Home Medications: Home Medications Ferous Sulfate 1 tab PO TID 05/07/18 Pnv No.95/Ferrous Fum/Folic AC [ Vitamin Tablet] 2 each PO DAILY 05/07/18 Smoking Status: Never smoker Alcohol: None Number of Fetus(es): 1 Heart Tracin, moderate variability, + accelerations, no decelerations TOCO Analysis: Poorly traced History Past Pregnancies: Primigravida Labs: Mom's Problem List Problem Status Onset Code 38 weeks gestation of Acute Z3A.38 (spontaneous vaginal delivery) Acute O80 Mom's Labs & Results 08/02/18 08/02/18 18:30 18:30 WBC 10.0 RBC 4.69 Hgb 13.5 Hct 41.8 MCV 89.1 MCH 28.8 MCHC 32.3 RDW 14.1 RDW Differential 45.8 H Plt Count 231 MPV 8.3 Blood Type B POSITIVE Antibody Screen NEGATIVE Course Did the patient receive Yes care? Labs Blood Type: B RH: POSITIVE RPR/VDRL/Syphilis Nonreactive Rubella status Immune HbSAg Negative Date Done: 01/23/18 HIV/AIDS Non-Reactive Group B Strep: Negative Current Obstetrical History Gestational Diabetes No Incompetent Cervix No Infertility No IUGR No Macrosomia No Hypertension/Pre-eclampsia No Placenta Previa/Abruption No PTL/PROM No Uterine anomaly No Oligohydramnios No Polyhydramnios No Multiple gestation No Past Medical History Asthma No Diabetes No Hypertension No Heart disease No Mitral valve prolapse No Neurologic/Seizure disorder/ No Migraines Kidney disease No Liver disease No Varicosities No Clotting disorders/Hx of DVT No Thyroid Dysfunction No Other medical diseases No Psychiatric disorders No Major trauma No Abnormal PAP smear No Sleep apnea No Mammogram in the last 2 years No Social History Marital Status: Alleged father Subramarian Hx Smoking No Smoking Status Never smoker Expected Delivery Method: Spontaneous Vaginal Review of Systems HEENT: Denies: Visual Changes Cardiovascular: Denies: Chest Pain Respiratory: Denies: Shortness of Breath Gastrointestinal: Denies: Nausea, Vomiting Gynecological: Reports: - - contractions, some fluid leaking, blood show Neurological: Denies: Headaches Physical Exam Vitals: 103/74 98 General: Alert, Oriented x3, Cooperative, No apparent distress HEENT: Atraumatic, Normocephalic Cardiovascular: Regular rate, Regular Rhythm, Normal S1, Normal S2 Lungs: Clear to auscultation, Normal air movement Abdomen: Soft, Non Tender, Non-Distended, Gravid, - - EFW 3200g Extremities:: No edema, Other - No calf tendneress Neurological: Neuro grossly intact Estimated gestational size: Appropriate for gestational size Presentation: Cephalic Cervix Dilation (cm): 5 - per RN exam Station: -2 Effacement (%): 80 Assessment/Plan All Active Problems (Last Updated 08/02/18 @ 18:22 by Monika Gibbs MD) Microcytic anemia (Resolved) 38 weeks gestation of (Acute) (spontaneous vaginal delivery) (Acute) This is a 22 year-old, G [1] at 38 2/7 weeks gestational age with Cat I FHR -Admit in labor -Maternal and statuses reassuring -Questionable rupture of membranes -Expectant management -Consents signed and reviewed -LARC declined
[2018-08-02] MEDS: Lactated Ringers 1,000 ML 50 ML IV (18:30)
[2018-08-02 19:03] LABS: Hematocrit 41.8 % (37-47); Hemoglobin 13.5 g/dl (12.0-15.0); Mean Corp Hgb Conc 32.3 g/gl (32-36); Mean Corpuscular Hgb 28.8 pg (27.0-32.0); Mean Corpuscular Volume 89.1 fL (81-99); Mean Platelet Vol. 8.3 fl (6.2-12.0); Platelet Count 231 K/mm3 (150-450); RBC Distribution Width CV 14.1 % (11.6-14.6); RBC Distribution Width SD 45.8 fl (35.1-43.9); Red Blood Count 4.69 M/mm3 (4.2-5.4)
[2018-08-02 19:06] LABS: Scan Indicated on CBC? Y/N NO
--- NOTE | 2018-08-02 22:05 | PCM.PN.BLA ---
Progress Note LABOR PROGRESS NOTE Patient doing well per who is her coaching through contractions. AVSS GEN - patient breathing through contractions intensely FHR 135, moderate variability, + accelerations, no decelerations TOCO 4/10 min SVE per RN 9cm/100/0 station A/P: 22yo G1 @ 38 2/7wga in active labor, Cat I FHR -Expectant management -Maternal and statuses reassuring
--- NOTE | 2018-08-02 23:35 | PCM.OB.VAG ---
- Problem List (1) 38 weeks gestation of Status: Acute (2) (spontaneous vaginal delivery) Status: Acute Vaginal Delivery Maternal Presentation: Active Labor Amniotic Membrane Rupture Type: Spontaneous Rupture of Membrane time: 08/02/18 Amniotic Fluid Description: Clear Final COLIN: 08/14/18 Gestational age: 38 Weeks and 2 Days Date of Procedure: 08/02/18 Pre-Operative Diagnosis: 38 2/7wga, labor Post-Operative Diagnosis: 38 2/7wga, labor Surgery/ Procedure Performed: Spontaneous Vaginal Delivery Type of Anesthesia: Local with 1% lidocaine Description of Procedure: Patient was FD/+4 station. She pushed to delivery a vigorous male infant. The infant was placed on the maternal abdomen and further attended by nursery personnel. The cord was doubly clamped and cut at approximately 5 minutes of life. The placenta delivered spontaneously and appeared intact on inspection. IV pitocin was started. An intrauterine exam was performed for uterine atony with heavy bleeding without a hemorrhage. The bleeding was much improved with bimanual uterine massage and continued pitocin. A second degree perineal laceration a left sulcal extension was repaired using 3-0 Vicryl Rapide under local anesthetic. There was good hemostasis. Sponge and needle counts were correct x 2 Presentation: Vertex Placental Delivery Description: Spontaneous Placenta Disposition: [facility] Cord Vessel Description: 3 Vessels Nuchal Cord Compression: Without compression Cord Entanglement: None Estimated Blood Loss: 350 ml Infant A gender: Male (1 minute): 8 (5 minute): 9 Episiotomy Description: None Laceration: Midline, Perineal Extension/lac, Vaginal Extension/lac, 2nd degree Medications given after delivery: IV Pitocin Complications: None
[2018-08-03] MEDS: Ibuprofen 600 MG Tablet PO ×2 (01:04→21:19)
[2018-08-03] MEDS: 0.9% Saline Lock 10 ML Syringe IV (01:17)
[2018-08-03 03:30] VITALS: BP 90/51; PULSE 79; RESP 16; TEMP 37.3
--- NOTE | 2018-08-03 06:16 | PN.OBGYN_ITS ---
Patient Problems: Active and Suspected Problems (Last Updated 08/02/18 @ 18:22 by Monika Valencia MD) 38 weeks gestation of (Acute) (spontaneous vaginal delivery) (Acute) Subjective: No complaints. Denies pain, heavy lochia. She feels well. Voiding without difficulty. She is . Objective: avss - Physical Exam General: Alert, Oriented x3, Cooperative, No apparent distress HEENT: Atraumatic, Normocephalic Lungs: Clear to auscultation, Normal air movement Cardiovascular: Regular rate, Regular Rhythm, Normal S1, Normal S2 Abdomen: Soft, Non Tender, Non-Distended, - - Fundus firm and nontender at 3 FW below umbilicus, lochia moderate Extremities: No edema, No Calf Tenderness Neurological: Neuro grossly intact Psych/Mental Status: Normal Affect, Appropriate, Alert and oriented to time, place, person, mood and affect Weight: 69.49 kg Body Mass Index (BMI) 24.0 Laboratory Tests Past 24 Hrs 08/02/18 08/02/18 18:30 18:30 WBC 10.0 RBC 4.69 Hgb 13.5 Hct 41.8 MCV 89.1 MCH 28.8 MCHC 32.3 RDW 14.1 RDW Differential 45.8 H Plt Count 231 MPV 8.3 Blood Type B POSITIVE Antibody Screen NEGATIVE Medical Necessity - Tobacco Use Smoking Status: Never smoker Assessment/Plan All Active Problems (Last Updated 08/02/18 @ 18:22 by Monika Gibbs MD) Microcytic anemia (Resolved) 38 weeks gestation of (Acute) (spontaneous vaginal delivery) (Acute) This is a 22 year-old, G [1] P1001 PPD#1 s/p doing well - -Rh positive -Routine care
[2018-08-03 08:00] VITALS: BP 94/58; PULSE 85; RESP 18; TEMP 36.9
[2018-08-03 10:50] LABS: Hematocrit 33.4 % (37-47); Hemoglobin 11.1 g/dl (12.0-15.0); Mean Corp Hgb Conc 33.2 g/gl (32-36); Mean Corpuscular Hgb 29.3 pg (27.0-32.0); Mean Corpuscular Volume 88.1 fL (81-99); Mean Platelet Vol. 8.3 fl (6.2-12.0); Platelet Count 193 K/mm3 (150-450); RBC Distribution Width CV 14.1 % (11.6-14.6); RBC Distribution Width SD 45.1 fl (35.1-43.9); Red Blood Count 3.79 M/mm3 (4.2-5.4); Scan Indicated on CBC? Y/N NO; White Blood Count 14.6 K/mm3 (4.4-11.0)
[2018-08-03] MEDS: Acetaminophen 325 MG Tablet PO (12:24)
--- NOTE | 2018-08-03 13:02 | DCINST_ITS ---
Discharge Diet: No Restrictions Discharge Activity: Return to Normal Activity, May Shower, May Take a Tub Bath May resume sexual activity in: 6 weeks Lifting Restrictions: 10 LB Call your doctor if you observe: Fever of 101 or Higher, Inability to urinate, Inability to have a bowel movement, Using more than one pad per hour, Shortness of breath, Chest pain, Calf discomfort, Uncontrolled pain Suture Line Care: Avoid Pulling/Pushing Cleanse incision/area with: Soap & Water Additional Instructions: If you experience any of the following, contact your healthcare provider. * Bleeding that soaks a pad every hour for 2 hours * Fever 100.4 or higher * Unrelieved incision or abdominal pain * Swelling, redness, discharge or bleeding from your incision or episiotomy site * Your incision begins to separate * Problems urinating (including inability to urinate or burning while urinating). * Visual changes * Severe headache * Flu-like symptoms * Pain or redness in one of both of your breasts * Pain, warmth, tenderness or swelling in your legs, especially the calf area * Frequent nausea and vomiting * Symptoms of depression or anxiety If you experience any of the following, call 911 or go to the nearest Emergency Room. * Chest pain * Problems breathing * Seizure activity * Partial or complete paralysis of a body part, slurred speech, weakness or drooping of the face, or a sudden inability to walk or hold your balance Allergies/Adverse Reactions: Allergies No Known Allergies Allergy (Verified 08/02/18 17:47) Medications to take at Discharge Pnv No.95/Ferrous Fum/Folic AC [ Vitamin Tablet] 2 each PO DAILY 05/07/18 Ibuprofen [Motrin] 600 mg PO Q8H PRN #30 tablet 08/03/18 Senna/Docusate Sodium [Senokot-S] 1 - 2 tablet PO DAILY PRN PRN #60 tablet 08/03/18 The following prescriptions were given: Ibuprofen [Motrin] 600 mg PO Q8H PRN #30 tablet PRN Reason: Pain Senna/Docusate Sodium [Senokot-S] 1 - 2 tablet PO DAILY PRN PRN #60 tablet PRN Reason: Constipation Please Follow Up With: Isis Das MD When: 6 weeks Primary Care Physician: Care Physician,No Primary [Primary Care Provider] - Test Results: Test results from this visit will be discussed in further detail at your follow- up appointment, if applicable.
[2018-08-03 13:30] VITALS: BP 92/53; PULSE 79; RESP 18; TEMP 36.7
[2018-08-03] MEDS: Prenatal Vits Tablet 2 TABLET PO (16:35)
[2018-08-03 16:53] VITALS: BP 104/65; PULSE 95; RESP 18; TEMP 36.6
[2018-08-03 20:35] VITALS: BP 108/60; PULSE 88; RESP 16; TEMP 36.6; O2SAT 97
[2018-08-04 02:24] VITALS: BP 98/60; PULSE 66; RESP 16; TEMP 36.6; O2SAT 97
[2018-08-04 08:30] VITALS: BP 91/50; PULSE 85; RESP 16; TEMP 37
--- NOTE | 2018-08-04 08:52 | PN.OBGYN_ITS ---
Patient Problems: Active and Suspected Problems (Last Updated 08/02/18 @ 18:22 by Monika Valencia MD) 38 weeks gestation of (Acute) (spontaneous vaginal delivery) (Acute) Subjective: No issues overnight. Her bottom is sore. nursing very well. Has some questions for discharge. Objective: avss - Physical Exam General: Alert, Oriented x3, Cooperative, No apparent distress HEENT: Atraumatic, Normocephalic Abdomen: Soft, Non Tender, Non-Distended Extremities: No edema, No Calf Tenderness Neurological: Neuro grossly intact Psych/Mental Status: Normal Affect, Appropriate, Alert and oriented to time, place, person, mood and affect Comment: Perineal laceration well approximated with no swelling or skin changes Vital Signs Temp Pulse Resp BP Pulse Ox 97.8 F 66 16 98/60 97 08/04/18 02:24 08/04/18 02:24 08/04/18 02:24 08/04/18 02:24 08/04/18 02:24 Oxygen Delivery Method Room Air Weight: 69.49 kg Body Mass Index (BMI) 24.0 Intake and Output for Last 24 Hours 08/02/18 08/03/18 08/04/18 23:59 23:59 23:59 Output Total 800 / 800 Balance -800 / -800 Laboratory Tests Past 24 Hrs 08/03/18 10:30 WBC 14.6 H RBC 3.79 L Hgb 11.1 L Hct 33.4 L MCV 88.1 MCH 29.3 MCHC 33.2 RDW 14.1 RDW Differential 45.1 H Plt Count 193 MPV 8.3 Medical Necessity - Tobacco Use Smoking Status: Never smoker Assessment/Plan All Active Problems (Last Updated 08/02/18 @ 18:22 by Monika Gibbs MD) Microcytic anemia (Resolved) 38 weeks gestation of (Acute) (spontaneous vaginal delivery) (Acute) This is a 22 year-old, G [1] P1001 PPD#2 s/p doing well - -Rh positive -Routine care -Discharge instructions and perineal care reviewed. -d/c home
[2018-08-04] MEDS: Ibuprofen 600 MG Tablet PO (12:25)
[2018-08-04 12:52] VITALS: BP 100/60; PULSE 69; RESP 16; TEMP 36.5; O2SAT 99
[2018-08-04] MEDS: Prenatal Vits Tablet 2 TABLET PO (14:44)
[2018-08-04] MEDS: Senna/Docusate Sodium 1 Tablet PO (14:44)
== END 2018-08-04 15:45 | disposition home or self-care (01) | DRG 807 ==
LOC: WPOUT 18:05 → WP 22:59
PROVIDERS: Admitting Provider Obstetrics & Gynecology; Referring Provider Obstetrics & Gynecology; Visit Provider Obstetrics & Gynecology
DX: O70.1 Second degree perineal laceration during delivery (principal); O69.81X0 Labor and delivery complicated by cord around neck, without compression, not applicable or unspecified; O62.2 Other uterine inertia; Z86.2 Personal history of diseases of the blood and blood-forming organs and certain disorders involving the immune mechanism; Z3A.38 38 weeks gestation of pregnancy; Z37.0 Single live birth
CPT/HCPCS: 59050; 85027; 86850; 86900; 99218; J7120; A4216; G0378

== ENCOUNTER 2020-03-24 14:20 | Emergency (ER) | payer BC, SELFPAY ==
[2020-03-24 14:20] VITALS: BP 107/61; PULSE 80; RESP 18; TEMP 36.4; O2SAT 100; BMI 20.7
--- NOTE | 2020-03-24 14:35 | ED.VIS.GEN ---
History of Present Illness Chief Complaint: Other, Pain/Inj Informant: Patient, Significant Other Onset: Days - 4 Narrative: Nontraumatic left-sided neck pain for 4 days. Symptoms worse with extreme rotation to the left. No radicular symptoms down the arm or any paresthesias. Denies any previous similar symptoms. Denies any past medical history. Denies any allergies. States try to get established PCP however cannot get in 4 weeks. Therefore came here. Prior similar symptoms: No Past Medical History - Allergies and Home Meds Allergies/Adverse Reactions: Allergies No Known Allergies Allergy (Verified 03/24/20 14:23) Primary Care Physician: Care Physician,No Primary [Primary Care Provider] - Past Medical History: None Smoking Status: Never smoker Review of Systems General: Denies: Chills, Fever, Sweats Eyes: Denies: Visual changes - bilaterally, Diplopia ENT: Denies: Rhinorrhea, Sore throat Cardiovascular: Denies: Chest pain, Palpitations Respiratory: Denies: Dyspnea, Cough, Dyspnea on exertion Gastrointestinal: Denies: Abdominal pain, Nausea, Vomiting, Diarrhea, Melena, Hematochezia Genitourinary: Denies: Dysuria, Hematuria, Frequency Musculoskeletal: Reports: Neck pain. Denies: Back pain, Extremity Pain Skin: Denies: Rash, Wounds Neurological: Denies: Headache, Weakness, Numbness Physical Exam Vital Signs/Narrative: Vital Signs Temp Pulse Resp BP Pulse Ox 03/24/20 14:20 97.6 F L 80 18 107/61 100 Inital Vital Signs reviewed: Yes General: Well nourished, Well developed, No Acute Distress Head: Normocephalic, Atraumatic Eyes: Perrl, EOMI ENT: Moist mucous membranes, No rhinorrhea Neck: Supple, - - No midline tenderness there is somatic dysfunction of C3-C4 with rotation to the left side bend to the left extended. Spurling's test was negative. Cardiovascular: Regular rate, Regular rhythm, No murmurs Respiratory: No distress, CTA bilaterally, Chest nontender Abdomen: Soft, Nontender, Nondistended, Normal bowel sounds Back: Nontender, Normal Inspection Extremities: Nontender, No edema Skin: Normal color, No rash Neurological: Alert, Oriented x3, Cranial nerves II-XII grossly intact, Normal Strength, Normal Sensation Psychological: Normal affect, Normal Mood Diagnostic/Tx/Re-eval - Medical Decision Making Patient exam concerns for somatic dysfunction with rotation C3-C4. Discussed with patient with no health risk factors osteopathic manipulation in the ED. She agreed. HVLA to the left side the neck with total improvement of symptoms. Discussed with patient drinking fluids Tylenol Motrin as needed. She will get established with her PCP as an outpatient. All questions were answered. Procedure note: Verbal consent. Osteopathic manipulation. Patient laid supine on the bed. Isolation of C3-C4, HVLA left-sided neck performed with improvement of symptoms. There is no complications. Patient taught procedure well. ED Disposition - Plan for ED Patient: Disposition: Home or Assisted Living Diagnosis: Somatic dysfunction of spine, cervical Instructions: ED Sprain Strain Neck Referrals: Care Physician,No Primary [Primary Care Provider] - Additional Instructions: Status post HVLA of your cervical spine. Keep your appointment with your established physician. Drink fluids, Tylenol or Motrin as needed.
== END 2020-03-24 15:20 | disposition home or self-care (01) ==
LOC: ED 15:07
PROVIDERS: Emergency Provider Emergency Medicine
DX: M99.01 Segmental and somatic dysfunction of cervical region (principal)

== ENCOUNTER → 2020-05-04 16:28 | Outpatient (CLI) | payer BC, SELFPAY ==
[2020-05-04 18:51] LABS: T4 Free Direct 0.95 ng/dL (0.76-1.46); Thyroid Stim Hormone (TSH) 2.31 uIU/mL (0.358-3.74)
== END ==
PROVIDERS: PCP Family Medicine; Referring Provider Family Medicine; Visit Provider Family Medicine
DX: E04.1 Nontoxic single thyroid nodule (principal)
CPT/HCPCS: 36415; 84439; 84443

== ENCOUNTER → 2020-05-11 15:41 | Outpatient (CLI) | payer BC, SELFPAY ==
--- NOTE | 2020-05-11 15:47 | US_ITS ---
ACR Level 3 findings have been noted. An addendum which confirms receipt of the report will follow. HISTORY: NODULES FELT ON EXAM COMPARISON: None TECHNIQUE: Grayscale and color Doppler sonography of the thyroid gland. FINDINGS: RIGHT LOBE: 5.4 x 1.4 x 2.0 cm LEFT LOBE: 5.3 x 1.1 x 1.7 cm ISTHMUS: 2.8 mm Right side: Mixed solid and cystic lesion measuring 9 x 7 x 4 mm, smoothly marginated, wider than tall without calcification (TIRADS 2). 4 x 2 x 3 mm small nodule in the right upper pole which is predominantly isoechoic, wider than tall, smoothly marginated without calcification (TIRADS 3). 8 x 4 x 7 mm isoechoic, smoothly marginated, wider than tall nodule in the right inferior thyroid lobe (TIRADS 3). Left side: Mixed solid and cystic nodule in the inferior thyroid lobe is predominantly isoechoic, wider than tall with ill-defined margins and punctate echogenic foci measuring 1.8 x 1.2 x 0.8 cm (TIRADS 4). Solid 9 x 8 x 4 mm hypoechoic nodule is wider than tall, smoothly marginated without calcification (TIRADS 4). Solid 5 x 4 x 3 mm nodule is predominantly isoechoic with smooth margins, wider than tall without calcification (TIRADS 3). US/Thyroid IMPRESSION: Multiple bilateral thyroid nodules. The largest nodule on the left is moderately suspicious, and FNA is recommended. at 0203 Reported and signed by: Edith Vee MD Electronically Signed: Edith Vee MD at 2:03 EST Tel , Service support ,
== END ==
PROVIDERS: PCP Family Medicine; Referring Provider Family Medicine; Visit Provider Family Medicine
DX: E04.1 Nontoxic single thyroid nodule (principal)
CPT/HCPCS: 76536

== ENCOUNTER 2020-07-29 15:42 | Emergency (ER) | payer BC, SELFPAY ==
[2020-07-29 15:43] VITALS: BP 116/66; PULSE 125; RESP 16; TEMP 36.8; O2SAT 100; BMI 21.1
--- NOTE | 2020-07-29 16:41 | ED.VISSUMM ---
- ER Visit Summary Date of Service: 07/29/20 Chief Complaint: Cold symptoms, headache. History of Present Illness: The patient is a 24 F presenting with cold symptoms. She states this started 3 days ago. She has had chills, rhinorrhea. She denies chest pain, shortness of breath, cough. She had mild nausea yesterday which has since resolved. She initially denied abdominal pain. She has a mild headache. She was seen by her primary care physician today and sent in due to concern for mild dehydration and abdominal pain. She denies sick contacts. Denies fever. Physical Examination: Vitals are stable. Patient is afebrile. Heart rate 125. Alert no acute distress. HEENT exam is unremarkable. Neck is supple. No meningismus Lungs are clear and equal bilaterally. Heart is regular tachycardic Abdomen is soft mild bilateral lower quadrant tenderness with no guarding or rebound Extremities are unremarkable. Skin is warm and dry. No focal neurologic deficit. Remainder of exam is unremarkable. Emergency Department Course and Treatment: Patient was given IV fluids, Reglan, Benadryl. She declined Covid testing. Patient declined all further testing including imaging, EKG, labs. Her repeat heart rate is 99. Her headache is improved. She is resting comfortably. Her primary care physician sent her due to her right lower quadrant abdominal pain. She is advised of risks of early appendicitis, dehydration, . Patient understands these risks and will return if she worsens. She signed out AGAINST MEDICAL ADVICE. Disposition: AGAINST MEDICAL ADVICE Impression: Viral syndrome, tachycardia This note was generated with [employer] dictation software. It may contain incorrect words, spelling, and punctuation that were not noted in review of the chart prior to signing ED Disposition - Plan for ED Patient: Referrals: Pablo Chi MD [Primary Care Provider] -
--- NOTE | 2020-07-29 16:53 | ED.RN ---
pt currently refusing UA and covid-19 test. upon entering room to medicate and start IV patient asked me to step out. she was on the phone with a family member discussing plan of care. elias ahn rn [id number]
[2020-07-29] MEDS: 0.9% Normal Saline 1,000 ML 1000 ML IV (17:24)
[2020-07-29] MEDS: DiphenhydrAMINE 50 MG/ML Syringe 25 MG IV (17:25)
[2020-07-29] MEDS: Metoclopramide 10 MG/2 ML Vial IV (17:25)
[2020-07-29 18:15] VITALS: PULSE 105; RESP 14; O2SAT 99
--- NOTE | 2020-07-29 18:29 | ED.DEP ---
ED Disposition - Plan for ED Patient: Instructions: ED Headache Unspecified Referrals: Pablo Chi MD [Primary Care Provider] -
[2020-07-29 18:38] VITALS: BP 104/68; PULSE 111; RESP 15; O2SAT 100
== END 2020-07-29 18:42 | disposition left against medical advice (07) ==
PROVIDERS: Emergency Provider Emergency Medicine; PCP Family Medicine
DX: B34.9 Viral infection, unspecified (principal); R00.0 Tachycardia, unspecified
CPT/HCPCS: 96361; 96374; 96375; 99283; J7030